=== PATIENT | male | born 1995 | race Caucasian/White ===

== ENCOUNTER 2018-01-21 20:57 | Emergency (ER) | payer OTHER ==
[2018-01-21] MEDS ORDERED: LAMIVUDINE/ZIDOVUDINE TAB PO STA (21:13)
[2018-01-21] MEDS ORDERED: TRUVADA/ISENTRES 1 TAB TAB PO ONE (21:40)
[2018-01-21] MEDS ORDERED: TRUVADA/ISENTRES 1 TAB TAB ONE (21:47)
[2018-01-21 21:51] LABS: BASOPHILS # (AUTO) 0.1 (0.0-0.1); BASOPHILS % 0.6 % (0.0-1.0); EOSINOPHILS # (AUTO) 0.1 (0.0-0.4); EOSINOPHILS % 0.5 % (0.0-6.0); HEMATOCRIT 43.6 % (38.2-49.6); HEMOGLOBIN 15.5 g/dL (14.0-18.0); LYMPHOCYTES # (AUTO) 2.3 (1.0-3.2); LYMPHOCYTES % 24.1 % (18.0-39.1); MEAN CORPUSCULAR HEMOGLOBIN 32.2 pg (28-32); MEAN CORPUSCULAR HGB CONC 35.6 g/dL (31-35); MEAN CORPUSCULAR VOLUME 90.6 fL (81-99); MONOCYTES # (AUTO) 0.5 (0.2-0.8); MONOCYTES % 5.5 % (4.4-11.3); NEUTROPHILS # (AUTO) 6.7 (2.1-6.9); NEUTROPHILS % 69.1 % (38.7-80.0); PLATELET COUNT 283 x10e3/uL (140-360); RED BLOOD COUNT 4.81 x10e6/uL (4.3-5.7); RED CELL DISTRIBUTION WIDTH 11.8 % (11.7-14.4)
[2018-01-21 22:11] LABS: ALANINE AMINOTRANSFERASE 22 IU/L (0-55); ALBUMIN 5.1 g/dL (3.5-5.0); ALBUMIN/GLOBULIN RATIO 1.8 (0.8-2.0); ALKALINE PHOSPHATASE 45 IU/L (40-150); ANION GAP 16.8 mmol/L (8-16); BLOOD UREA NITROGEN 8 mg/dL (7-26); BUN/CREATININE RATIO 7 (6-25); CARBON DIOXIDE 25 mmol/L (22-29); CHLORIDE 103 mmol/L (98-107); CREATININE, SERUM 1.19 mg/dL (0.72-1.25); EST GLOMERULAR FILTRATION RATE > 60 ML/MIN (60-); GLUCOSE 63 mg/dL (74-118); POTASSIUM 3.8 mmol/L (3.5-5.1); SODIUM 141 mmol/L (136-145)
[2018-01-21 22:24] LABS: HIV 1&2 AB SCREEN NON-REACTIVE (NONREACTIVE)
== END 2018-01-21 22:35 | disposition home or self-care (01) ==
LOC: ER 20:57
DX: Z20.89 Contact with and (suspected) exposure to other communicable diseases (principal); Y99.0 Civilian activity done for income or pay
CPT/HCPCS: 36415; 80053; 85025; 86592; 87390; 87536; 99283; G0433; G0435